=== PATIENT | male | born 1965 ===

== ENCOUNTER 2019-02-16 20:47 | Inpatient (IN) ==
[2019-02-17] MEDS ORDERED: DOCUSATE SODIUM 100 MG CAPSULE PO PRN (01:01)
[2019-02-17] MEDS ORDERED: traMADol 50 MG TABLET PO PRN (01:01)
[2019-02-17] MEDS ORDERED: ONDANSETRON 4 MG/2 ML VIAL IV PRN (01:01)
[2019-02-17] MEDS ORDERED: LORazepam 2 MG/1 ML VIAL IV PRN (01:39)
[2019-02-17 06:20] LABS: Basophils # 0.1 10*3/uL (0.0-0.2); Basophils % 0.9 % (0.0-0.8); Eosinophils # 0.7 10*3/uL (0.0-0.87); Eosinophils % 10.3 % (0.00-10.9); Hematocrit 28.6 VOL% (42.0-52.0); Hemoglobin 10.3 GM/DL (14.0-18.0); Immature Granulocytes % 0.5 %; Immature Granulocytes Absolute 0.03 #; Lymphocytes # 0.6 10*3/uL (1.4-4.0); Lymphocytes % 9.2 % (21.2-54.2); Mean Corpuscular Volume 101.8 FL (87-102); Mean Platelet Volume 9.7 FL (9.6-12.0); Monocytes % 10.4 % (1.7-12.7); Neutrophils % 68.7 % (38.7-73.9); Platelet Count 88 T/CUMM (130-400); Red Blood Count 2.81 MC/CUMM (3.8-5.5); Red Cell Distribution Width 13.9 % (9.3-17.3); White Blood Count 6.4 T/CUMM (4-12)
[2019-02-17 06:48] LABS: Anisocytosis 1+; Platelet Estimate Decreased
[2019-02-17 06:50] LABS: Alanine Aminotransferase 36 U/L (16-61); Albumin 1.3 G/DL (3.4-5.0); Alkaline Phosphatase 146 U/L (45-117); Aspartate Amino Transferase 54 U/L (0-37); Blood Urea Nitrogen 26 MG/DL (7-18); Calcium 7.9 MG/DL (8.5-10.1); Glucose 101 MG/DL (74-106); HDL Cholesterol < 10 MG/DL (40-60); Thyroid Stimulating Hormone 0.656 uIU/ml (0.358-3.74); Total Protein 6.5 G/DL (6.4-8.3); Triglycerides 185 MG/DL (2-150)
[2019-02-17] MEDS: cefTRIAXone 1,000 MG in SYRINGE 1 EACH IV SCH (08:43)
[2019-02-17] MEDS ORDERED: THIAMINE 100 MG TABLET PO SCH (09:00)
[2019-02-17] MEDS ORDERED: PANTOPRAZOLE 40 MG TABLET PO SCH (09:00)
[2019-02-17] MEDS ORDERED: FOLIC ACID 1 MG TABLET PO SCH (09:00)
[2019-02-17] MEDS ORDERED: MULTIVITAMIN (CENTRUM) TABLET PO SCH (09:00)
[2019-02-17] MEDS ORDERED: POTASSIUM CHLORIDE 20 MEQ TABLET PO SCH (09:00)
[2019-02-17] MEDS ORDERED: SPIRONOLACTONE 100 MG TABLET PO SCH (09:00)
[2019-02-17] MEDS ORDERED: FUROSEMIDE 40 MG TABLET PO SCH (09:00)
[2019-02-17] MEDS ORDERED: MORPHINE 4 MG/1 ML VIAL IV PRN (10:50)
[2019-02-17] MEDS: POTASSIUM CHLORIDE INJ 40 MEQ in LACTATED RINGERS 1,000 ML IV SCH ×2 (11:58→20:25)
[2019-02-17 13:55] LABS: INR 1.5; PT Patient Result 16.7 SECS
[2019-02-18 06:10] LABS: Basophils # 0.1 10*3/uL (0.0-0.2); Eosinophils # 0.8 10*3/uL (0.0-0.87); Eosinophils % 13.5 % (0.00-10.9); Hematocrit 26.4 VOL% (42.0-52.0); Hemoglobin 9.6 GM/DL (14.0-18.0); Immature Granulocytes % 0.5 %; Immature Granulocytes Absolute 0.03 #; Lymphocytes # 0.8 10*3/uL (1.4-4.0); Lymphocytes % 12.3 % (21.2-54.2); Mean Corpuscular HGB Conc 36.4 GM/DL (32-36); Mean Corpuscular Volume 101.1 FL (87-102); Mean Platelet Volume 9.3 FL (9.6-12.0); Monocytes % 12.6 % (1.7-12.7); Neutrophils % 60.1 % (38.7-73.9); Platelet Count 78 T/CUMM (130-400); Red Blood Count 2.61 MC/CUMM (3.8-5.5); Red Cell Distribution Width 14.1 % (9.3-17.3); White Blood Count 6.1 T/CUMM (4-12)
[2019-02-18 06:42] LABS: Albumin 1.2 G/DL (3.4-5.0); Osmolality,Calculated 284.7 MOS/KG (273-304); Total Protein 6.3 G/DL (6.4-8.3)
[2019-02-18 07:24] LABS: Albumin 1.3 G/DL (3.4-5.0); Bilirubin,Direct 12.32 MG/DL (0.0-0.20); Total Protein 6.3 G/DL (6.4-8.3)
[2019-02-18 07:25] LABS: Bilirubin,Indirect 4.7 MG/DL (0.0-1.0)
[2019-02-18 07:34] LABS: Hepatitis B Core IgM Quant 0.05 Index; Hepatitis B Surface Ag Quant < 0.10 Index; Hepatitis B Surface Ag Result Negative (Negative); Hepatitis C Virus Ab Quant 0.11 Index; Hepatitis C Virus Ab Result Negative (Negative)
[2019-02-18] MEDS: cefTRIAXone 1,000 MG in SYRINGE 1 EACH IV SCH (07:46)
[2019-02-18 07:59] LABS: Atypical Lymphocytes Few; Eosinophils 5 % (0-10); Lymphocytes 7 % (20-55); Platelet Estimate Decreased; Polychromasia Slight; Reactive Lymphocytes Few; Segmented Neutrophils 79 % (50-85); Total Cells Counted 100
[2019-02-18] MEDS: POTASSIUM CHLORIDE INJ 40 MEQ in LACTATED RINGERS 1,000 ML IV SCH (19:51)
[2019-02-18] MEDS: POTASSIUM CHLORIDE 20 MEQ TABLET PO PRN ×2 (20:59→23:04)
[2019-02-19] MEDS: POTASSIUM CHLORIDE 20 MEQ TABLET PO PRN ×6 (02:40→16:20)
[2019-02-19 05:45] LABS: Eosinophils # 0.6 10*3/uL (0.0-0.87); Eosinophils % 15.2 % (0.00-10.9); Hematocrit 27.4 VOL% (42.0-52.0); Hemoglobin 10.2 GM/DL (14.0-18.0); Immature Granulocytes % 0.5 %; Immature Granulocytes Absolute 0.02 #; Lymphocytes # 0.9 10*3/uL (1.4-4.0); Lymphocytes % 20.5 % (21.2-54.2); Mean Corpuscular HGB Conc 37.2 GM/DL (32-36); Mean Corpuscular Volume 100.4 FL (87-102); Mean Platelet Volume 9.3 FL (9.6-12.0); Monocytes % 12.9 % (1.7-12.7); Neutrophils % 49.9 % (38.7-73.9); Platelet Count 69 T/CUMM (130-400); Red Blood Count 2.73 MC/CUMM (3.8-5.5); Red Cell Distribution Width 13.5 % (9.3-17.3); White Blood Count 4.2 T/CUMM (4-12)
[2019-02-19 06:11] LABS: Albumin 1.1 G/DL (3.4-5.0); Calcium 7.7 MG/DL (8.5-10.1); Osmolality,Calculated 278.8 MOS/KG (273-304); Total Protein 6.1 G/DL (6.4-8.3)
[2019-02-19 06:14] LABS: Eosinophils 15 % (0-10); Hypochromasia 1+; Lymphocytes 16 % (20-55); Platelet Estimate Decreased; Segmented Neutrophils 60 % (50-85); Total Cells Counted 100
[2019-02-19 06:22] LABS: Bilirubin,Total 15.8 MG/DL (0.2-1.0)
[2019-02-19] MEDS: cefTRIAXone 1,000 MG in SYRINGE 1 EACH IV SCH (09:08)
[2019-02-20] MEDS: POTASSIUM CHLORIDE INJ 40 MEQ in LACTATED RINGERS 1,000 ML IV SCH (07:54)
[2019-02-20] MEDS ORDERED: LACTATED RINGERS 1,000 ML IV SCH (08:00)
[2019-02-20 08:22] LABS: Albumin 1.2 G/DL (3.4-5.0); Bilirubin,Direct 12.5 MG/DL (0.0-0.20); Bilirubin,Indirect 4.2 MG/DL (0.0-1.0); Calcium 7.9 MG/DL (8.5-10.1); Osmolality,Calculated 275.7 MOS/KG (273-304); Total Protein 6.5 G/DL (6.4-8.3)
[2019-02-20 08:26] LABS: Bilirubin,Total 16.7 MG/DL (0.2-1.0)
[2019-02-20] MEDS: cefTRIAXone 1,000 MG in SYRINGE 1 EACH IV SCH (08:41)
[2019-02-20 08:47] LABS: Hematocrit 30.4 VOL% (42.0-52.0); Hemoglobin 10.5 GM/DL (14.0-18.0); Mean Corpuscular HGB Conc 34.5 GM/DL (32-36); Platelet Count 77 T/CUMM (130-400); Red Blood Count 3.07 MC/CUMM (3.8-5.5); Red Cell Distribution Width 13.5 % (9.3-17.3); White Blood Count 5.7 T/CUMM (4-12)
[2019-02-20 08:48] LABS: Basophils % 0.5 % (0.0-0.8); Eosinophils # 0.6 10*3/uL (0.0-0.87); Eosinophils % 10.1 % (0.00-10.9); Immature Granulocytes % 0.3 %; Immature Granulocytes Absolute 0.02 #; Lymphocytes # 1.1 10*3/uL (1.4-4.0); Mean Platelet Volume 9.3 FL (9.6-12.0); Monocytes % 10.3 % (1.7-12.7); Neutrophils % 59.8 % (38.7-73.9)
[2019-02-20] MEDS ORDERED: MANNITOL 12.5 GM/50 ML VIAL IV ONE (09:00)
[2019-02-20] MEDS ORDERED: PROPOFOL 200 MG/20 ML VIAL IV ONE (09:00)
[2019-02-20] MEDS ORDERED: LACTULOSE 20 GM/30 ML UDCUP PO SCH (21:00)
[2019-02-21 06:02] LABS: Basophils % 0.6 % (0.0-0.8); Eosinophils # 0.6 10*3/uL (0.0-0.87); Eosinophils % 11.6 % (0.00-10.9); Hematocrit 26.4 VOL% (42.0-52.0); Hemoglobin 9.8 GM/DL (14.0-18.0); Immature Granulocytes % 0.4 %; Immature Granulocytes Absolute 0.02 #; Lymphocytes % 20.3 % (21.2-54.2); Mean Corpuscular HGB Conc 37.1 GM/DL (32-36); Mean Corpuscular Volume 105.6 FL (87-102); Mean Platelet Volume 9.3 FL (9.6-12.0); Monocytes % 11.2 % (1.7-12.7); Neutrophils % 55.9 % (38.7-73.9); Platelet Count 70 T/CUMM (130-400); Red Cell Distribution Width 13.9 % (9.3-17.3); White Blood Count 4.8 T/CUMM (4-12)
[2019-02-21 06:14] LABS: INR 1.6; PT Patient Result 17.3 SECS
[2019-02-21 06:35] LABS: Albumin 1.2 G/DL (3.4-5.0); Bilirubin,Direct 11.15 MG/DL (0.0-0.20); Bilirubin,Indirect 6.1 MG/DL (0.0-1.0); Calcium 8.1 MG/DL (8.5-10.1); Osmolality,Calculated 273.8 MOS/KG (273-304); Total Protein 6.4 G/DL (6.4-8.3)
[2019-02-21 06:40] LABS: Bilirubin,Total 17.2 MG/DL (0.2-1.0)
[2019-02-21 06:51] LABS: Band Neutrophils 4 % (0-10); Eosinophils 18 % (0-10); Lymphocytes 14 % (20-55); Myelocytes 2 %; Segmented Neutrophils 50 % (50-85); Total Cells Counted 100
[2019-02-21 06:52] LABS: Anisocytosis 1+; Platelet Estimate Decreased; Target Cells Few
[2019-02-21] MEDS: LACTULOSE 20 GM/30 ML UDCUP PO SCH ×3 (08:58→21:01)
[2019-02-21] MEDS: cefTRIAXone 1,000 MG in SYRINGE 1 EACH IV SCH (08:58)
[2019-02-21] MEDS: POTASSIUM CHLORIDE INJ 40 MEQ in LACTATED RINGERS 1,000 ML IV SCH ×2 (09:15→23:55)
[2019-02-21] MEDS: prednisoLONE 15 MG/5 ML ORAL.SYR PO SCH (14:22)
[2019-02-21] MEDS: PANTOPRAZOLE 40 MG TABLET PO SCH (14:22)
[2019-02-22 04:57] LABS: Eosinophils % 0.2 % (0.00-10.9); Hematocrit 26.5 VOL% (42.0-52.0); Hemoglobin 9.4 GM/DL (14.0-18.0); Immature Granulocytes % 0.5 %; Immature Granulocytes Absolute 0.02 #; Lymphocytes # 0.5 10*3/uL (1.4-4.0); Lymphocytes % 12.6 % (21.2-54.2); Mean Corpuscular HGB Conc 35.5 GM/DL (32-36); Mean Corpuscular Volume 104.3 FL (87-102); Mean Platelet Volume 9.3 FL (9.6-12.0); Monocytes % 6.3 % (1.7-12.7); Neutrophils % 80.4 % (38.7-73.9); Platelet Count 63 T/CUMM (130-400); Red Blood Count 2.54 MC/CUMM (3.8-5.5); Red Cell Distribution Width 13.7 % (9.3-17.3); White Blood Count 4.3 T/CUMM (4-12)
[2019-02-22 05:22] LABS: Albumin 1.2 G/DL (3.4-5.0); Bilirubin,Direct 12.96 MG/DL (0.0-0.20); Osmolality,Calculated 282.5 MOS/KG (273-304); Total Protein 6.5 G/DL (6.4-8.3)
[2019-02-22 05:28] LABS: Bilirubin,Indirect 4.1 MG/DL (0.0-1.0); Bilirubin,Total 17.1 MG/DL (0.2-1.0)
[2019-02-22 05:31] LABS: Lymphocytes 9 % (20-55); Platelet Estimate Decreased; Segmented Neutrophils 89 % (50-85); Total Cells Counted 100
[2019-02-22 05:32] LABS: Hypochromasia 1+
[2019-02-22] MEDS: cefTRIAXone 1,000 MG in SYRINGE 1 EACH IV SCH (06:47)
[2019-02-22] MEDS: LACTULOSE 20 GM/30 ML UDCUP PO SCH ×2 (09:32→20:49)
[2019-02-22] MEDS: PANTOPRAZOLE 40 MG TABLET PO SCH (09:32)
[2019-02-22] MEDS: prednisoLONE 15 MG/5 ML ORAL.SYR PO SCH (09:32)
[2019-02-22] MEDS: POTASSIUM CHLORIDE INJ 40 MEQ in LACTATED RINGERS 1,000 ML IV SCH (17:44)
[2019-02-23] MEDS: POTASSIUM CHLORIDE INJ 40 MEQ in LACTATED RINGERS 1,000 ML IV SCH (00:34)
[2019-02-23 04:47] LABS: Basophils % 0.1 % (0.0-0.8); Eosinophils % 0.3 % (0.00-10.9); Hematocrit 25.7 VOL% (42.0-52.0); Hemoglobin 9.4 GM/DL (14.0-18.0); Immature Granulocytes % 0.5 %; Immature Granulocytes Absolute 0.04 #; Lymphocytes % 12.7 % (21.2-54.2); Mean Corpuscular HGB Conc 36.6 GM/DL (32-36); Mean Corpuscular Volume 103.2 FL (87-102); Mean Platelet Volume 9.3 FL (9.6-12.0); Monocytes % 9.6 % (1.7-12.7); Neutrophils % 76.8 % (38.7-73.9); Platelet Count 79 T/CUMM (130-400); Red Blood Count 2.49 MC/CUMM (3.8-5.5); Red Cell Distribution Width 13.6 % (9.3-17.3); White Blood Count 7.5 T/CUMM (4-12)
[2019-02-23 05:16] LABS: Albumin 1.1 G/DL (3.4-5.0); Bilirubin,Direct 11.2 MG/DL (0.0-0.20); Calcium 7.8 MG/DL (8.5-10.1); Osmolality,Calculated 283.4 MOS/KG (273-304); Total Protein 6.3 G/DL (6.4-8.3)
[2019-02-23 05:18] LABS: Hypochromasia 1+; Lymphocytes 9 % (20-55); Platelet Estimate Decreased; Segmented Neutrophils 82 % (50-85); Total Cells Counted 100
[2019-02-23 05:20] LABS: Bilirubin,Indirect 3.9 MG/DL (0.0-1.0); Bilirubin,Total 15.1 MG/DL (0.2-1.0)
[2019-02-23] MEDS: LACTULOSE 20 GM/30 ML UDCUP PO SCH ×2 (09:53→20:32)
[2019-02-23] MEDS: PANTOPRAZOLE 40 MG TABLET PO SCH (09:53)
[2019-02-23] MEDS: prednisoLONE 15 MG/5 ML ORAL.SYR PO SCH (09:54)
[2019-02-24 06:57] LABS: Eosinophils % 0.2 % (0.00-10.9); Hematocrit 26.6 VOL% (42.0-52.0); Hemoglobin 9.4 GM/DL (14.0-18.0); Immature Granulocytes % 0.7 %; Immature Granulocytes Absolute 0.04 #; Lymphocytes # 0.7 10*3/uL (1.4-4.0); Lymphocytes % 11.7 % (21.2-54.2); Mean Corpuscular HGB Conc 35.3 GM/DL (32-36); Mean Corpuscular Volume 103.5 FL (87-102); Mean Platelet Volume 9.7 FL (9.6-12.0); Monocytes % 11.9 % (1.7-12.7); Neutrophils % 75.5 % (38.7-73.9); Platelet Count 65 T/CUMM (130-400); Red Blood Count 2.57 MC/CUMM (3.8-5.5); Red Cell Distribution Width 13.7 % (9.3-17.3); White Blood Count 5.9 T/CUMM (4-12)
[2019-02-24 07:08] LABS: Albumin 1.1 G/DL (3.4-5.0); Bilirubin,Direct 10.24 MG/DL (0.0-0.20); Calcium 7.7 MG/DL (8.5-10.1); Osmolality,Calculated 278.8 MOS/KG (273-304); Total Protein 6.4 G/DL (6.4-8.3)
[2019-02-24 07:14] LABS: Bilirubin,Indirect 3.1 MG/DL (0.0-1.0); Bilirubin,Total 13.3 MG/DL (0.2-1.0)
[2019-02-24 07:38] LABS: Hypochromasia 1+; Lymphocytes 3 % (20-55); Segmented Neutrophils 89 % (50-85); Total Cells Counted 100
[2019-02-24 07:39] LABS: Macrocytosis 1+; Platelet Estimate Decreased
[2019-02-24] MEDS: POTASSIUM CHLORIDE INJ 40 MEQ in LACTATED RINGERS 1,000 ML IV SCH ×2 (08:08→21:02)
[2019-02-24] MEDS: LACTULOSE 20 GM/30 ML UDCUP PO SCH ×2 (08:08→20:59)
[2019-02-24] MEDS: prednisoLONE 15 MG/5 ML ORAL.SYR PO SCH (08:08)
[2019-02-24] MEDS: PANTOPRAZOLE 40 MG TABLET PO SCH (08:08)
[2019-02-25 06:13] LABS: Eosinophils % 0.2 % (0.00-10.9); Hematocrit 27.7 VOL% (42.0-52.0); Hemoglobin 9.7 GM/DL (14.0-18.0); Immature Granulocytes % 1.1 %; Immature Granulocytes Absolute 0.07 #; Lymphocytes # 0.8 10*3/uL (1.4-4.0); Lymphocytes % 13.1 % (21.2-54.2); Mean Corpuscular Volume 102.2 FL (87-102); Mean Platelet Volume 9.2 FL (9.6-12.0); Neutrophils % 74.6 % (38.7-73.9); Red Blood Count 2.71 MC/CUMM (3.8-5.5); Red Cell Distribution Width 13.6 % (9.3-17.3); White Blood Count 6.4 T/CUMM (4-12)
[2019-02-25 06:31] LABS: Platelet Count 73 T/CUMM (130-400)
[2019-02-25 06:45] LABS: Albumin 1.1 G/DL (3.4-5.0); Bilirubin,Direct 9.71 MG/DL (0.0-0.20); Bilirubin,Indirect 3.3 MG/DL (0.0-1.0); Calcium 7.7 MG/DL (8.5-10.1); Osmolality,Calculated 280.8 MOS/KG (273-304); Total Protein 6.3 G/DL (6.4-8.3)
[2019-02-25] MEDS: LACTULOSE 20 GM/30 ML UDCUP PO SCH ×2 (08:59→20:40)
[2019-02-25] MEDS: PANTOPRAZOLE 40 MG TABLET PO SCH (08:59)
[2019-02-25] MEDS: prednisoLONE 15 MG/5 ML ORAL.SYR PO SCH (10:15)
[2019-02-25] MEDS: POTASSIUM CHLORIDE INJ 40 MEQ in LACTATED RINGERS 1,000 ML IV SCH (20:42)
[2019-02-26 07:08] LABS: Basophils % 0.2 % (0.0-0.8); Eosinophils % 0.7 % (0.00-10.9); Hematocrit 27.6 VOL% (42.0-52.0); Hemoglobin 10.1 GM/DL (14.0-18.0); Immature Granulocytes % 0.9 %; Immature Granulocytes Absolute 0.05 #; Lymphocytes # 0.6 10*3/uL (1.4-4.0); Lymphocytes % 10.8 % (21.2-54.2); Mean Corpuscular HGB Conc 36.6 GM/DL (32-36); Mean Corpuscular Volume 103.8 FL (87-102); Mean Platelet Volume 9.2 FL (9.6-12.0); Monocytes % 11.4 % (1.7-12.7); Red Blood Count 2.66 MC/CUMM (3.8-5.5); Red Cell Distribution Width 13.9 % (9.3-17.3); White Blood Count 5.6 T/CUMM (4-12)
[2019-02-26 07:13] LABS: Platelet Count 66 T/CUMM (130-400)
[2019-02-26 07:38] LABS: Albumin 1.1 G/DL (3.4-5.0); Bilirubin,Direct 9.46 MG/DL (0.0-0.20); Bilirubin,Indirect 3.5 MG/DL (0.0-1.0); Calcium 7.9 MG/DL (8.5-10.1); Osmolality,Calculated 279.8 MOS/KG (273-304); Total Protein 6.4 G/DL (6.4-8.3)
[2019-02-26 07:46] LABS: Band Neutrophils 1 % (0-10); Eosinophils 1 % (0-10); Lymphocytes 4 % (20-55); Platelet Estimate Decreased; Segmented Neutrophils 87 % (50-85); Total Cells Counted 100
[2019-02-26 07:47] LABS: Anisocytosis 1+; Macrocytosis 2+
[2019-02-26] MEDS: prednisoLONE 15 MG/5 ML ORAL.SYR PO SCH (08:54)
[2019-02-26] MEDS: PANTOPRAZOLE 40 MG TABLET PO SCH (08:54)
[2019-02-26] MEDS: LACTULOSE 20 GM/30 ML UDCUP PO SCH (08:55)
[2019-02-26 11:17] VITALS: BP 131/70
== END 2019-02-26 12:06 | disposition home or self-care (01) | DRG 433 ==
LOC: N.5E → SUATTDRO 22:14
PROVIDERS: ADMIT Family Medicine; ATTEND Internal Medicine

== ENCOUNTER 2019-03-13 17:37 | Inpatient (IN) ==
[2019-03-13] MEDS ORDERED: PHENYLEPHRINE DRIP 40 MG/250 ML PREMIX IV ONE (18:38)
[2019-03-13] MEDS ORDERED: SODIUM CHLORIDE 0.9% 500 ML IV STA (18:42)
[2019-03-13] MEDS: PHENYLEPHRINE DRIP 40 MG/250 ML PREMIX IV PRN (18:49)
[2019-03-13 18:58] LABS: Basophils % 0.5 % (0.0-0.8); Eosinophils # 0.1 10*3/uL (0.0-0.87); Hematocrit 27.1 VOL% (42.0-52.0); Hemoglobin 9.9 GM/DL (14.0-18.0); Immature Granulocytes % 2.1 %; Immature Granulocytes Absolute 0.12 #; Lymphocytes # 0.6 10*3/uL (1.4-4.0); Lymphocytes % 10.5 % (21.2-54.2); Mean Corpuscular HGB Conc 36.5 GM/DL (32-36); Mean Corpuscular Volume 98.2 FL (87-102); Mean Platelet Volume 10.2 FL (9.6-12.0); Monocytes % 11.2 % (1.7-12.7); Neutrophils % 74.7 % (38.7-73.9); Platelet Count 53 T/CUMM (130-400); Red Blood Count 2.76 MC/CUMM (3.8-5.5); Red Cell Distribution Width 15.2 % (9.3-17.3); White Blood Count 5.7 T/CUMM (4-12)
[2019-03-13 19:07] LABS: INR 1.9; PT Patient Result 20.4 SECS (9.6-12.2)
[2019-03-13 19:08] LABS: Alanine Aminotransferase 62 U/L (16-61); Albumin 1.1 G/DL (3.4-5.0); Alkaline Phosphatase 183 U/L (45-117); Aspartate Amino Transferase 96 U/L (0-37); Blood Urea Nitrogen 78 MG/DL (7-18); CKMB % 2.9 %; Calcium 7.1 MG/DL (8.5-10.1); Glucose 80 MG/DL (74-106); Total Protein 5.9 G/DL (6.4-8.3)
[2019-03-13 19:10] LABS: Troponin I 0.226 NG/ML (0.00-0.045)
[2019-03-13 19:10] LABS: ABG HCO3 16.4 MMOL/L (20-26); ABG Oxygen Saturation 95.3 % (95-100); ABG PCO2 23.1 MM HG (35-48); ABG PH 7.384 (7.35-7.45); ABG PO2 84.7 MM HG (80-95); ABG TCO2 12.5 MMOL/L (23-27); Allen Test Positive
[2019-03-13] MEDS ORDERED: SODIUM BICARBONATE 50 MEQ/50 ML VIAL IV STA (19:16)
[2019-03-13] MEDS ORDERED: SODIUM CHLORIDE 0.9% 1,000 ML IV STA (19:18)
[2019-03-13 19:32] LABS: Apearance,Urine CLEAR (Clear); Blood, Urine Small mg/dL (Negative); Glucose,Urine (UA) 50 mg/dL (Negative); Hyaline Casts,Urine 7 /LPF (0-3); Ketones,Urine Negative (Negative); Mucus,Urine Occasional /LPF (Occasional); Nitrite,Urine Negative (Negative); Protein,Urine Negative; RBC,Urine 1 /HPF (0-4); Squamous Epithelial Cell,Urine Occasional /HPF (0-10); Urine Color Amber (Yellow); Urine Specific Gravity 1.014 (1.001-1.035); WBC,Urine 2 /HPF (0-6)
[2019-03-13] MEDS ORDERED: PIPERACILLIN/TAZOBACTAM 3,375 MG VIAL IV ONE (19:36)
[2019-03-13] MEDS ORDERED: SODIUM BICARBONATE 50 MEQ/50 ML SYRINGE IV ONE (19:37)
[2019-03-13 19:40] LABS: Barbiturates Screen,Urine Negative (Negative); Benzodiazepines Screen,Urine Negative (Negative); Cannabinoid Screen,Urine Negative (Negative); Opiate Screen,Urine Negative (Negative); Phencyclidine Screen,Urine Negative (Negative)
[2019-03-13] MEDS ORDERED: VECURONIUM 10 MG VIAL IV ONE (19:43)
[2019-03-13] MEDS ORDERED: ETOMIDATE 20 MG/10 ML VIAL IV ONE (19:43)
[2019-03-13] MEDS ORDERED: PIPERACILLIN/TAZOBACTAM 3,375 MG in SODIUM CHLORIDE 0.9% 100 ML IV STA (19:45)
[2019-03-13] MEDS ORDERED: GLUCAGON 1 MG VIAL IM PRN (19:49)
[2019-03-13] MEDS ORDERED: LORazepam 2 MG/1 ML VIAL IV PRN (19:49)
[2019-03-13] MEDS ORDERED: ONDANSETRON 4 MG/2 ML VIAL IV PRN (19:49)
[2019-03-13] MEDS ORDERED: THIAMINE INJ 100 MG, FOLIC ACID INJ 1 MG, MULTIVITAMIN INJ 10 ML in DEXTROSE 5% NACL 0.... IV ONE (20:03)
[2019-03-13 20:24] LABS: Bilirubin,Urine Moderate mg/dL (Negative)
[2019-03-13] MEDS ORDERED: LACTULOSE 20 GM/30 ML UDCUP PO SCH (21:00)
[2019-03-13] MEDS: INSULIN LISPRO 100 UNIT/ML SUBCUT SCH (22:16)
[2019-03-13] MEDS: MIDAZOLAM 100 MG in SODIUM CHLORIDE 0.9% 80 ML IV PRN (22:50)
[2019-03-14 02:10] LABS: Basophils % 0.3 % (0.0-0.8); Eosinophils # 0.1 10*3/uL (0.0-0.87); Hematocrit 26.3 VOL% (42.0-52.0); Hemoglobin 9.4 GM/DL (14.0-18.0); Immature Granulocytes % 1.6 %; Immature Granulocytes Absolute 0.14 #; Lymphocytes # 0.8 10*3/uL (1.4-4.0); Lymphocytes % 9.4 % (21.2-54.2); Mean Corpuscular HGB Conc 35.7 GM/DL (32-36); Mean Corpuscular Volume 97.8 FL (87-102); Mean Platelet Volume 9.1 FL (9.6-12.0); Monocytes % 10.1 % (1.7-12.7); Neutrophils % 77.6 % (38.7-73.9); Red Blood Count 2.69 MC/CUMM (3.8-5.5); Red Cell Distribution Width 15.3 % (9.3-17.3); White Blood Count 8.9 T/CUMM (4-12)
[2019-03-14 02:13] LABS: Platelet Count 82 T/CUMM (130-400)
[2019-03-14 02:30] LABS: Calcium 6.9 MG/DL (8.5-10.1); Osmolality,Calculated 297.8 MOS/KG (273-304); Total Protein 5.5 G/DL (6.4-8.3)
[2019-03-14] MEDS: PHENYLEPHRINE DRIP 40 MG/250 ML PREMIX IV PRN ×4 (02:35→08:23)
[2019-03-14 02:38] LABS: Bilirubin,Total 20.6 MG/DL (0.2-1.0)
[2019-03-14] MEDS ORDERED: NOREPINEPHRINE 8 MG in SODIUM CHLORIDE 0.9% 242 ML IV PRN (02:49)
[2019-03-14] MEDS ORDERED: SODIUM CHLORIDE 0.9% 1,000 ML IV SCH (03:00)
[2019-03-14 03:04] LABS: Vitamin B12 > 2000 PG/ML (211-911)
[2019-03-14 03:48] LABS: Platelet Estimate Decreased; Polychromasia Few
[2019-03-14] MEDS ORDERED: PIPERACILLIN/TAZOBACTAM 3,375 MG in SODIUM CHLORIDE 0.9% 100 ML IV SCH (04:00)
[2019-03-14 04:26] LABS: Allen Test Positive; Pt O2 Delivery Device Ventilator
[2019-03-14 04:27] LABS: ABG Base Excess -6.8 MMOL/L (-2.5-2.5); ABG HCO3 18.9 MMOL/L (20-26); ABG Oxygen Saturation 99.5 % (95-100); ABG PCO2 27.1 MM HG (35-48); ABG TCO2 15.2 MMOL/L (23-27)
[2019-03-14 06:57] VITALS: BP 95/49
[2019-03-14] MEDS: POTASSIUM CHLORIDE RIDER 10 MEQ in PREMIX 1 EACH IV PRN ×2 (07:51→09:10)
[2019-03-14] MEDS: INSULIN LISPRO 100 UNIT/ML SUBCUT SCH ×3 (08:03→17:30)
[2019-03-14] MEDS ORDERED: THIAMINE 200 MG/2 ML VIAL IV SCH (09:00)
[2019-03-14] MEDS: MIDAZOLAM 100 MG in SODIUM CHLORIDE 0.9% 80 ML IV PRN ×2 (09:13→18:43)
[2019-03-14] MEDS: LACTULOSE 20 GM/30 ML UDCUP PO SCH ×3 (10:14→21:32)
[2019-03-14] MEDS: RIFAXIMIN 550 MG TABLET PER TUBE SCH ×2 (10:14→21:32)
[2019-03-14] MEDS: PANTOPRAZOLE 40 MG VIAL IV SCH (10:19)
[2019-03-14] MEDS: SODIUM CHLORIDE 0.9% IV PRN ×2 (10:29→14:19)
[2019-03-14] MEDS: PHENYLEPHRINE IV PRN ×2 (10:29→14:19)
[2019-03-14] MEDS: DEXTROSE 10% 250 ML BAG IV PRN ×3 (12:45→13:15)
[2019-03-14] MEDS ORDERED: SODIUM BICARB IV SCH (13:30)
[2019-03-14] MEDS ORDERED: THIAMINE IV SCH (13:30)
[2019-03-14] MEDS ORDERED: [UNRECOGNIZED DRUG - OTHER] IV SCH (13:30)
[2019-03-14] MEDS ORDERED: MULTIVITAMIN IV SCH (13:30)
[2019-03-14] MEDS: ALBUMIN 5% 12.5 GM in PREMIX 1 EACH IV SCH (13:34)
[2019-03-14] MEDS: HEPARIN 5,000 UNIT/1 ML VIAL SUBCUT SCH ×2 (14:10→21:35)
[2019-03-14] MEDS: PIPERACILLIN/TAZOBACTAM 3,375 MG in SODIUM CHLORIDE 0.9% 100 ML IV SCH (15:50)
[2019-03-14] MEDS: PHENYLEPHRINE INJ 160 MG in SODIUM CHLORIDE 0.9% 234 ML IV PRN (18:37)
[2019-03-14] MEDS: NOREPINEPHRINE 16 MG in SODIUM CHLORIDE 0.9% 234 ML IV PRN (21:21)
[2019-03-15] MEDS: INSULIN LISPRO 100 UNIT/ML SUBCUT SCH ×4 (00:02→19:28)
[2019-03-15] MEDS: ALBUMIN 5% 12.5 GM in PREMIX 1 EACH IV SCH ×2 (01:28→13:15)
[2019-03-15] MEDS: PHENYLEPHRINE INJ 160 MG in SODIUM CHLORIDE 0.9% 234 ML IV PRN ×3 (02:08→17:10)
[2019-03-15 02:35] LABS: Basophils % 0.3 % (0.0-0.8); Eosinophils # 0.1 10*3/uL (0.0-0.87); Eosinophils % 0.8 % (0.00-10.9); Hematocrit 27.1 VOL% (42.0-52.0); Hemoglobin 9.6 GM/DL (14.0-18.0); Immature Granulocytes % 2.3 %; Immature Granulocytes Absolute 0.25 #; Lymphocytes % 9.1 % (21.2-54.2); Mean Corpuscular HGB Conc 35.4 GM/DL (32-36); Mean Corpuscular Volume 99.6 FL (87-102); Mean Platelet Volume 9.7 FL (9.6-12.0); Monocytes % 11.8 % (1.7-12.7); NRBC # 0.07 10*3/uL; Neutrophils % 75.7 % (38.7-73.9); Red Blood Count 2.72 MC/CUMM (3.8-5.5); Red Cell Distribution Width 15.9 % (9.3-17.3); White Blood Count 11.1 T/CUMM (4-12)
[2019-03-15 02:36] LABS: Platelet Count 88 T/CUMM (130-400)
[2019-03-15 02:51] LABS: Albumin 1.4 G/DL (3.4-5.0); Calcium 6.6 MG/DL (8.5-10.1); Osmolality,Calculated 301.7 MOS/KG (273-304); Prealbumin < 3.0 MG/DL (20-40); Total Protein 5.8 G/DL (6.4-8.3)
[2019-03-15 03:12] LABS: Eosinophils 1 % (0-10); Lymphocytes 10 % (20-55); Nucleated Red Blood Cells 3 (0-5); Segmented Neutrophils 77 % (50-85); Total Cells Counted 100
[2019-03-15 03:15] LABS: Burr Cells 3+; Platelet Estimate Decreased
[2019-03-15 03:25] LABS: ABG HCO3 13.7 MMOL/L (20-26); ABG PCO2 25.3 MM HG (35-48); ABG PH 7.273 (7.35-7.45); ABG TCO2 10.8 MMOL/L (23-27); Allen Test Positive; Pt O2 Delivery Device Ventilator
[2019-03-15] MEDS ORDERED: SODIUM BICARBONATE 50 MEQ/50 ML VIAL IV ONE ×2 (04:04→04:06)
[2019-03-15] MEDS: PIPERACILLIN/TAZOBACTAM 3,375 MG in SODIUM CHLORIDE 0.9% 100 ML IV SCH ×2 (04:09→17:15)
[2019-03-15] MEDS: MIDAZOLAM 100 MG in SODIUM CHLORIDE 0.9% 80 ML IV PRN (04:58)
[2019-03-15] MEDS: HEPARIN 5,000 UNIT/1 ML VIAL SUBCUT SCH ×3 (06:32→21:52)
[2019-03-15] MEDS ORDERED: PNEUMOCOCCAL VACCINE (13 VALENT) 0.5 ML SYRINGE IM ONE (09:00)
[2019-03-15] MEDS: PANTOPRAZOLE 40 MG VIAL IV SCH (09:35)
[2019-03-15] MEDS: LACTULOSE 20 GM/30 ML UDCUP PO SCH ×3 (09:35→21:52)
[2019-03-15] MEDS: RIFAXIMIN 550 MG TABLET PER TUBE SCH ×2 (09:35→21:52)
[2019-03-15] MEDS: NOREPINEPHRINE 16 MG in SODIUM CHLORIDE 0.9% 234 ML IV PRN ×2 (09:47→23:18)
[2019-03-15 09:49] LABS: INR 2.4
[2019-03-15 09:50] LABS: PT Patient Result 25.6 SECS (9.6-12.2)
[2019-03-15] MEDS: MULTIVITAMIN IV SCH (13:04)
[2019-03-15] MEDS: SODIUM BICARB IV SCH (13:04)
[2019-03-15] MEDS: DEXTROSE IV SCH (13:04)
[2019-03-15] MEDS: THIAMINE 200 MG/2 ML VIAL IV SCH (13:10)
[2019-03-16] MEDS: ALBUMIN 5% 12.5 GM in PREMIX 1 EACH IV SCH (00:30)
[2019-03-16] MEDS: INSULIN LISPRO 100 UNIT/ML SUBCUT SCH ×3 (00:34→12:35)
[2019-03-16] MEDS: PHENYLEPHRINE INJ 160 MG in SODIUM CHLORIDE 0.9% 234 ML IV PRN ×2 (01:09→09:22)
[2019-03-16 03:28] LABS: ABG Base Excess -15.1 MMOL/L (-2.5-2.5); ABG HCO3 13.1 MMOL/L (20-26); ABG PCO2 27.7 MM HG (35-48); ABG PH 7.227 (7.35-7.45); ABG PO2 81.8 MM HG (80-95); ABG TCO2 10.4 MMOL/L (23-27); Allen Test Positive; Pt O2 Delivery Device Ventilator
[2019-03-16] MEDS: PIPERACILLIN/TAZOBACTAM 3,375 MG in SODIUM CHLORIDE 0.9% 100 ML IV SCH (04:04)
[2019-03-16 04:34] LABS: INR 2.8
[2019-03-16 04:35] LABS: Basophils % 0.3 % (0.0-0.8); Eosinophils # 0.1 10*3/uL (0.0-0.87); Eosinophils % 0.4 % (0.00-10.9); Hemoglobin 8.6 GM/DL (14.0-18.0); Immature Granulocytes % 2.3 %; Immature Granulocytes Absolute 0.34 #; Lymphocytes % 6.9 % (21.2-54.2); Mean Corpuscular HGB Conc 34.4 GM/DL (32-36); Mean Corpuscular Volume 103.7 FL (87-102); Mean Platelet Volume 9.9 FL (9.6-12.0); Monocytes % 11.1 % (1.7-12.7); NRBC # 0.12 10*3/uL; Platelet Count 66 T/CUMM (130-400); Red Blood Count 2.41 MC/CUMM (3.8-5.5); Red Cell Distribution Width 16.3 % (9.3-17.3)
[2019-03-16 04:37] LABS: PT Patient Result 30.1 SECS (9.6-12.2)
[2019-03-16 05:00] LABS: Albumin 1.5 G/DL (3.4-5.0); Calcium 6.7 MG/DL (8.5-10.1); Osmolality,Calculated 304.4 MOS/KG (273-304); Total Protein 5.4 G/DL (6.4-8.3)
[2019-03-16] MEDS: NOREPINEPHRINE 16 MG in SODIUM CHLORIDE 0.9% 234 ML IV PRN (05:15)
[2019-03-16 05:19] LABS: Band Neutrophils 29 % (0-10); Lymphocytes 10 % (20-55); Nucleated Red Blood Cells 4 (0-5); Platelet Estimate Decreased; Segmented Neutrophils 55 % (50-85); Total Cells Counted 100
[2019-03-16 05:20] LABS: Anisocytosis 2+; Macrocytosis 2+; Poikilocytosis Slight; Polychromasia Slight
[2019-03-16] MEDS: HEPARIN 5,000 UNIT/1 ML VIAL SUBCUT SCH (06:29)
[2019-03-16] MEDS ORDERED: DOPamine 800 MG/250 ML PREMIX IV PRN (07:32)
[2019-03-16] MEDS ORDERED: DOPamine 800 MG/250 ML PREMIX IV ONE (07:33)
[2019-03-16] MEDS ORDERED: NOREPINEPHRINE 4 MG/4 ML VIAL IV ONE (08:08)
[2019-03-16] MEDS: RIFAXIMIN 550 MG TABLET PER TUBE SCH (10:07)
[2019-03-16] MEDS: THIAMINE 200 MG/2 ML VIAL IV SCH (10:07)
[2019-03-16] MEDS: PANTOPRAZOLE 40 MG VIAL IV SCH (10:07)
[2019-03-16] MEDS: SODIUM BICARB IV SCH (10:07)
[2019-03-16] MEDS: DEXTROSE IV SCH (10:07)
[2019-03-16] MEDS: LACTULOSE 20 GM/30 ML UDCUP PO SCH (10:07)
[2019-03-16] MEDS: MULTIVITAMIN IV SCH (10:07)
[2019-03-16] MEDS: MORPHINE 4 MG/1 ML VIAL IV PRN ×2 (10:19→12:15)
[2019-03-16] MEDS ORDERED: LORazepam 2 MG/1 ML VIAL ONE ×2 (12:04→12:26)
[2019-03-16] MEDS ORDERED: MORPHINE 4 MG/1 ML VIAL IV PRN (12:12)
[2019-03-16] MEDS ORDERED: LORazepam 2 MG/1 ML VIAL IV PRN (12:12)
[2019-03-20] MEDS ORDERED: PNEUMOCOCCAL VACCINE (13 VALENT) 0.5 ML SYRINGE IM ONE
== END 2019-03-16 12:38 | disposition expired | DRG 871 ==
LOC: EDBD → EDUNIT# → N.ED 17:37 → N.EDINP 19:46 → N.ICU 20:07
PROVIDERS: ADMIT Internal Medicine; ATTEND Internal Medicine